=== PATIENT | female | born 1935 | race Caucasian/White ===

== ENCOUNTER 2020-06-13 10:18 | Emergency (ER) | payer MEDICARE ==
[2020-06-13] MEDS ORDERED: Adacel (T-DAP) 0.5 ML SYRINGE ONE (10:46)
[2020-06-13] MEDS ORDERED: Famotidine 20 MG TAB ONE (10:46)
[2020-06-13] MEDS ORDERED: predniSONE 20 MG TAB ONE (10:46)
[2020-06-13] MEDS ORDERED: diphenhydrAMINE 25 MG CAP ONE (10:46)
== END 2020-06-13 12:36 | disposition home or self-care (01) ==
LOC: BURERS 10:18
DX: S80.812A Abrasion, left lower leg, initial encounter (principal); S80.811A Abrasion, right lower leg, initial encounter; I10 Essential (primary) hypertension; Z79.899 Other long term (current) drug therapy; W61.92XA Struck by other birds, initial encounter
CPT/HCPCS: 90471; 90715; J7512; Q0163

== ENCOUNTER 2020-07-03 17:29 | Emergency (ER) | payer MEDICARE ==
[2020-07-03] MEDS ORDERED: Morphine 4 MG/ML VIAL ONE (17:36)
[2020-07-03] MEDS ORDERED: Ketorolac Tromethamine 30 MG/ML VIAL ONE (17:36)
[2020-07-03] MEDS ORDERED: Lorazepam 2 MG/ML VIAL ONE (18:34)
[2020-07-03] MEDS ORDERED: Ketamine 50 MG/ML (10ML VIAL) ONE (19:18)
--- NOTE | 2020-07-03 19:45 | CT ---
CT OF THE BRAIN WITHOUT CONTRAST: 07/03/20 Diffuse atrophy with mild compensatory dilatation of the ventricles is present. No intracranial bleed ing or extra-axial hematoma was seen. There is no sign of mass, edema, or definite acute stroke. The skull appears intact. The visible paranasal sinuses and mastoid air cells are clear. IMPRESSION: No acute intracranial finding. POS: HOME
--- NOTE | 2020-07-03 19:47 | CT ---
CT OF THE FACIAL BONES 07/03/[address] of the face was done following trauma. No facial fractures were seen. The nasal bones, zygo matic arches, orbital rims, maxilla, and mandible all appeared intact. The paranasal sinuses are kevin r. The retro-orbital regions appear normal. IMPRESSION: No acute traumatic finding. POS: HOME
--- NOTE | 2020-07-03 19:48 | RAD ---
RIGHT SHOULDER FIVE VIEWS: 07/03/20 No fracture, dislocation, or AC joint widening was seen. The visible adjacent ribs appeared intact. IMPRESSION: No acute finding. POS: HOME
--- NOTE | 2020-07-03 19:50 | RAD ---
PORTABLE CHEST: 07/03/20 An AP portable film at 1818 shows the heart to be upper normal in size, but there is no congestive ch skyler or pleural effusion. The lungs are fully inflated and clear. Portions of the left lung are not s ee as well due to rotation of the patient. No rib fractures were apparent and the mediastinum does no t seem widened. A fracture of the distal right humerus is present. See elbow dictation for further de tails. IMPRESSION: No acute thoracic findings. POS: HOME
--- NOTE | 2020-07-03 19:51 | RAD ---
RIGHT ELBOW THREE VIEWS: 07/03/20 There is a fracture of the distal humerus in the supracondylar region with significant angulation and displacement of the distal fragment. No other major fractures were identified, though subtle fractur es might be missed. IMPRESSION: Displaced supracondylar fracture of the distal humerus. POS: HOME
--- NOTE | 2020-07-03 19:53 | RAD ---
RIGHT ELBOW TWO VIEWs: 07/03/20 Post reduction views show some improvement in the displacement and angulation of the distal humeral f racture, though it is still angulated posteriorly. On this study, it is easier to see that there is a n oblique fracture of the lower humeral shaft that extends into the supracondylar region. There may b e a fracture line extending into the lateral condyle, but superimposed shadows preclude being sure ab out this. A splint has been applied. IMPRESSION: Improved angulation of the distal humeral fracture. POS: HOME
[2020-07-03] MEDS ORDERED: HYDROcodone/Acetaminophen 5/325 mg Tablet ONE (20:08)
== END 2020-07-03 20:25 | disposition home or self-care (01) ==
LOC: BURERS 17:29
DX: S42.491A Other displaced fracture of lower end of right humerus, initial encounter for closed fracture (principal); S01.81XA Laceration without foreign body of other part of head, initial encounter; W01.0XXA Fall on same level from slipping, tripping and stumbling without subsequent striking against object, initial encounter; Y92.009 Unspecified place in unspecified non-institutional (private) residence as the place of occurrence of the external cause
CPT/HCPCS: 12011; 70450; 70486; 71045; 96374; 96375; J1885; J2060; J2270

== ENCOUNTER 2020-07-10 14:36 | Inpatient (IN) | payer MEDICARE ==
[2020-07-10] MEDS: Carbidopa/Levodopa 25-100 mg Tablet PO SCH (22:00)
[2020-07-10] MEDS: Cefdinir 300 MG CAP PO SCH (22:00)
[2020-07-10] MEDS: Acetaminophen 500 MG TAB PO PRN (22:03)
[2020-07-11] MEDS: Carbidopa/Levodopa 25-100 mg Tablet PO SCH ×4 (08:15→21:04)
[2020-07-11] MEDS: Acetaminophen 500 MG TAB PO PRN ×2 (08:15→19:41)
[2020-07-11] MEDS: Cefdinir 300 MG CAP PO SCH ×2 (08:15→21:03)
[2020-07-11] MEDS: Triamterene/Hydrochlorothiazide 37.5 mg/25 mg Tablet PO SCH (08:15)
[2020-07-11] MEDS ORDERED: FLU VACC QS2020-21(65YR UP)/PF 240 MCG/0.7 ML SYRINGE IM ONE (09:00)
[2020-07-12] MEDS: Acetaminophen 500 MG TAB PO PRN ×3 (00:54→20:30)
[2020-07-12] MEDS: Carbidopa/Levodopa 25-100 mg Tablet PO SCH ×4 (05:51→20:30)
[2020-07-12] MEDS: Cefdinir 300 MG CAP PO SCH ×2 (08:36→20:30)
[2020-07-12] MEDS: Triamterene/Hydrochlorothiazide 37.5 mg/25 mg Tablet PO SCH (08:36)
[2020-07-12] MEDS: Lorazepam 0.5 MG TAB PO SCH (20:59)
[2020-07-13] MEDS: Milk Of Magnesia 30 ML UDCUP PO PRN (02:02)
[2020-07-13] MEDS: Carbidopa/Levodopa 25-100 mg Tablet PO SCH ×4 (05:55→20:39)
[2020-07-13] MEDS ORDERED: Loratadine 10 MG TAB PO PRN (07:15)
[2020-07-13] MEDS: Acetaminophen 500 MG TAB PO PRN (07:52)
[2020-07-13] MEDS: Cefdinir 300 MG CAP PO SCH ×2 (07:52→20:39)
[2020-07-13] MEDS: Docusate 100 MG CAP PO SCH (07:52)
[2020-07-13] MEDS: Triamterene/Hydrochlorothiazide 37.5 mg/25 mg Tablet PO SCH (07:52)
[2020-07-13] MEDS ORDERED: Mupirocin 2% Ointment 22 GM Tube TOP SCH (09:00)
[2020-07-13] MEDS ORDERED: TRIMETHOPRIM PO SCH (09:00)
[2020-07-13] MEDS ORDERED: Acetaminophen 500 MG TAB PO SCH (13:00)
--- NOTE | 2020-07-13 16:02 | RAD ---
CHEST 2 VIEWS: Date: 07/13/2020 Comparison is made with the 07/03/2020 study. The heart is borderline in size, but there is no congestive change or pleural effusion. No lobar pulm onary infiltrate was seen. The lungs are clear, except for a small linear streak over the right mid l sparkle area which may be atelectasis. IMPRESSION: No significant findings. POS: HOME
[2020-07-13] MEDS: Lorazepam 0.5 MG TAB PO SCH (20:39)
[2020-07-14] MEDS: Carbidopa/Levodopa 25-100 mg Tablet PO SCH ×4 (06:22→20:53)
[2020-07-14] MEDS: Acetaminophen 500 MG TAB PO PRN ×3 (06:33→18:03)
[2020-07-14] MEDS: Cefdinir 300 MG CAP PO SCH ×2 (08:45→20:53)
[2020-07-14] MEDS: Docusate 100 MG CAP PO SCH (08:45)
[2020-07-14] MEDS: Milk Of Magnesia 30 ML UDCUP PO PRN (08:46)
[2020-07-14] MEDS: Triamterene/Hydrochlorothiazide 37.5 mg/25 mg Tablet PO SCH (08:46)
[2020-07-14] MEDS: Lorazepam 0.5 MG TAB PO SCH (20:53)
[2020-07-15] MEDS: Carbidopa/Levodopa 25-100 mg Tablet PO SCH ×4 (05:42→20:09)
[2020-07-15] MEDS: Triamterene/Hydrochlorothiazide 37.5 mg/25 mg Tablet PO SCH (09:42)
[2020-07-15] MEDS: Docusate 100 MG CAP PO SCH (09:42)
[2020-07-15] MEDS: Acetaminophen 500 MG TAB PO PRN ×2 (09:43→16:07)
[2020-07-15] MEDS ORDERED: Promethazine 25 MG TAB PO PRN (19:58)
[2020-07-15] MEDS ORDERED: Promethazine 25 MG TAB PO SCH (20:00)
[2020-07-15] MEDS: Lorazepam 0.5 MG TAB PO SCH (20:09)
[2020-07-16] MEDS: Acetaminophen 500 MG TAB PO PRN ×2 (04:40→17:52)
[2020-07-16] MEDS: Mag-Al Plus 1200 MG/1200 MG/120 MG/30 ML UDCUP PO PRN (04:40)
[2020-07-16] MEDS: Carbidopa/Levodopa 25-100 mg Tablet PO SCH ×4 (06:45→20:15)
[2020-07-16] MEDS: Docusate 100 MG CAP PO SCH (09:35)
[2020-07-16] MEDS: Triamterene/Hydrochlorothiazide 37.5 mg/25 mg Tablet PO SCH (09:35)
[2020-07-16] MEDS: Milk Of Magnesia 30 ML UDCUP PO PRN (09:37)
[2020-07-16] MEDS: Ergocalciferol 1.25 MG(50,000 UNITS) CAP PO SCH (15:37)
[2020-07-16] MEDS: Lorazepam 0.5 MG TAB PO SCH (20:15)
[2020-07-17] MEDS: Carbidopa/Levodopa 25-100 mg Tablet PO SCH ×4 (06:02→20:09)
[2020-07-17] MEDS: Triamterene/Hydrochlorothiazide 37.5 mg/25 mg Tablet PO SCH (08:45)
[2020-07-17] MEDS: Docusate 100 MG CAP PO SCH (08:45)
[2020-07-17] MEDS: Acetaminophen 500 MG TAB PO PRN (17:41)
[2020-07-17] MEDS: Lorazepam 0.5 MG TAB PO SCH (20:09)
[2020-07-18] MEDS: Carbidopa/Levodopa 25-100 mg Tablet PO SCH ×4 (05:02→20:56)
[2020-07-18] MEDS: Acetaminophen 500 MG TAB PO PRN ×2 (05:02→15:58)
[2020-07-18] MEDS: Docusate 100 MG CAP PO SCH (08:49)
[2020-07-18] MEDS: Triamterene/Hydrochlorothiazide 37.5 mg/25 mg Tablet PO SCH (08:49)
[2020-07-18] MEDS: Lorazepam 0.5 MG TAB PO SCH (20:56)
[2020-07-19] MEDS: Carbidopa/Levodopa 25-100 mg Tablet PO SCH ×5 (05:20→20:54)
[2020-07-19] MEDS: Acetaminophen 500 MG TAB PO PRN ×3 (07:23→20:57)
[2020-07-19] MEDS: Triamterene/Hydrochlorothiazide 37.5 mg/25 mg Tablet PO SCH (09:35)
[2020-07-19] MEDS: Docusate 100 MG CAP PO SCH (09:35)
[2020-07-19] MEDS: Lorazepam 0.5 MG TAB PO SCH ×2 (20:04→20:54)
[2020-07-20] MEDS: Acetaminophen 500 MG TAB PO PRN (05:41)
[2020-07-20] MEDS: Docusate 100 MG CAP PO SCH (09:27)
[2020-07-20] MEDS: Carbidopa/Levodopa 25-100 mg Tablet PO SCH ×4 (09:27→20:56)
[2020-07-20] MEDS: Triamterene/Hydrochlorothiazide 37.5 mg/25 mg Tablet PO SCH (09:27)
[2020-07-20] MEDS: Lorazepam 0.5 MG TAB PO SCH (20:56)
[2020-07-21] MEDS: Carbidopa/Levodopa 25-100 mg Tablet PO SCH ×4 (05:39→20:50)
[2020-07-21] MEDS: Acetaminophen 500 MG TAB PO PRN ×2 (08:17→20:50)
[2020-07-21] MEDS: Docusate 100 MG CAP PO SCH (08:17)
[2020-07-21] MEDS: Milk Of Magnesia 30 ML UDCUP PO PRN (08:17)
[2020-07-21] MEDS: Triamterene/Hydrochlorothiazide 37.5 mg/25 mg Tablet PO SCH (08:17)
[2020-07-21] MEDS: Lorazepam 0.5 MG TAB PO SCH (20:50)
[2020-07-22] MEDS: Acetaminophen 500 MG TAB PO PRN ×2 (03:45→19:08)
[2020-07-22] MEDS: Carbidopa/Levodopa 25-100 mg Tablet PO SCH ×4 (05:26→21:02)
[2020-07-22] MEDS: Triamterene/Hydrochlorothiazide 37.5 mg/25 mg Tablet PO SCH (08:46)
[2020-07-22] MEDS: Docusate 100 MG CAP PO SCH (08:46)
[2020-07-22 10:44] VITALS: BMI 22.8
[2020-07-22] MEDS: Lorazepam 0.5 MG TAB PO SCH (21:02)
[2020-07-23] MEDS: Carbidopa/Levodopa 25-100 mg Tablet PO SCH ×4 (05:56→20:55)
[2020-07-23] MEDS: Docusate 100 MG CAP PO SCH (08:18)
[2020-07-23] MEDS: Triamterene/Hydrochlorothiazide 37.5 mg/25 mg Tablet PO SCH (08:18)
[2020-07-23] MEDS: Acetaminophen 500 MG TAB PO PRN ×2 (08:21→15:23)
[2020-07-23] MEDS: Ergocalciferol 1.25 MG(50,000 UNITS) CAP PO SCH (08:21)
[2020-07-23] MEDS ORDERED: traMADol HCl 50 MG TAB PO PRN (16:38)
[2020-07-23] MEDS: Lorazepam 0.5 MG TAB PO SCH (20:55)
[2020-07-24] MEDS: Carbidopa/Levodopa 25-100 mg Tablet PO SCH ×4 (07:00→20:59)
[2020-07-24] MEDS ORDERED: Carbidopa/Levodopa CR 50-200 mg Tablet PO SCH (09:00)
[2020-07-24] MEDS: Docusate 100 MG CAP PO SCH (09:08)
[2020-07-24] MEDS: Triamterene/Hydrochlorothiazide 37.5 mg/25 mg Tablet PO SCH (09:09)
[2020-07-24] MEDS: Lorazepam 0.5 MG TAB PO SCH (20:59)
[2020-07-25] MEDS: Carbidopa/Levodopa 25-100 mg Tablet PO SCH ×4 (06:00→20:42)
[2020-07-25] MEDS: Triamterene/Hydrochlorothiazide 37.5 mg/25 mg Tablet PO SCH (09:38)
[2020-07-25] MEDS: Docusate 100 MG CAP PO SCH (09:38)
[2020-07-25] MEDS: Milk Of Magnesia 30 ML UDCUP PO PRN (09:40)
[2020-07-25] MEDS: Acetaminophen 500 MG TAB PO PRN (16:57)
[2020-07-25] MEDS: Lorazepam 0.5 MG TAB PO SCH (20:42)
[2020-07-26] MEDS: Carbidopa/Levodopa 25-100 mg Tablet PO SCH ×4 (06:48→21:55)
[2020-07-26] MEDS: Triamterene/Hydrochlorothiazide 37.5 mg/25 mg Tablet PO SCH (07:30)
[2020-07-26] MEDS: Docusate 100 MG CAP PO SCH (07:31)
[2020-07-26] MEDS: Milk Of Magnesia 30 ML UDCUP PO PRN (07:33)
[2020-07-26] MEDS: Lorazepam 0.5 MG TAB PO SCH (20:34)
[2020-07-26] MEDS: Acetaminophen 500 MG TAB PO PRN (21:50)
[2020-07-27] MEDS: Mag-Al Plus 1200 MG/1200 MG/120 MG/30 ML UDCUP PO PRN ×2 (00:45→07:14)
[2020-07-27] MEDS: Carbidopa/Levodopa 25-100 mg Tablet PO SCH ×4 (05:59→20:54)
[2020-07-27] MEDS: Triamterene/Hydrochlorothiazide 37.5 mg/25 mg Tablet PO SCH (08:44)
[2020-07-27] MEDS: Docusate 100 MG CAP PO SCH (08:44)
[2020-07-27] MEDS: Acetaminophen 500 MG TAB PO PRN (08:47)
[2020-07-27 10:50] VITALS: TEMP 97.6
[2020-07-27 12:21] LABS: Bilirubin Negative (Negative); Blood, Urine Negative (Negative); Clarity Clear (Clear); Glucose, Urine (Dipstick) Negative (Negative); Ketone, Urine Negative (Negative); Leukocyte Negative (Negative); Nitrite Negative (Negative); Protein, Urine (Dipstick) Negative (Neg-Trace); Specific Gravity, Urine 1.015 (1.005-1.030); Urobilinogen 0.2 mg/dL (Less than 2); pH, Urine 7.5 (5.0-9.0)
[2020-07-27] MEDS: Lorazepam 0.5 MG TAB PO SCH (20:52)
[2020-07-28] MEDS: Carbidopa/Levodopa 25-100 mg Tablet PO SCH ×2 (06:00→11:09)
[2020-07-28 07:18] VITALS: BP 138/61
[2020-07-28] MEDS: Docusate 100 MG CAP PO SCH (08:24)
[2020-07-28] MEDS: Triamterene/Hydrochlorothiazide 37.5 mg/25 mg Tablet PO SCH (08:24)
== END 2020-07-28 14:00 | disposition home or self-care (01) | DRG 560 ==
LOC: BURMED 17:10
PROVIDERS: ADMIT Family Medicine; ATTEND Family Medicine
DX: Z47.89 Encounter for other orthopedic aftercare (principal); N39.0 Urinary tract infection, site not specified; J98.11 Atelectasis; R53.81 Other malaise; K21.9 Gastro-esophageal reflux disease without esophagitis; N18.30 Chronic kidney disease, stage 3 unspecified; G20 Parkinson's disease; I12.9 Hypertensive chronic kidney disease with stage 1 through stage 4 chronic kidney disease, or unspecified chronic kidney disease; Z88.2 Allergy status to sulfonamides; Z88.8 Allergy status to other drugs, medicaments and biological substances
CPT/HCPCS: 71046; 81001; Q0169